=== PATIENT | male | born 1965 | race Two or more races ===

== ENCOUNTER → 2018-11-04 | Outpatient (CLI) | payer OTHER ==
[~2018-11-04] MED LIST: IOHEXOL 300 MG/ML 100ML BOTTLE IJ ONE
[2018-11-04 08:51] LABS: Anion Gap 5 (5-15); BUN/Creatinine Ratio 14.9; Blood Urea Nitrogen 14 mg/dL (7-18); Calcium 8.6 mg/dL (8.5-10.1); Carbon Dioxide 28 mmol/L (21-32); Chloride 106 mmol/L (98-107); GFR African American > 60 mL/min; GFR Non-African American > 60 mL/min; Glucose 136 mg/dL (74-106); Potassium 4.3 mmol/L (3.5-5.1); Sodium 139 mmol/L (136-145)
== END | disposition home or self-care (01) ==
LOC: CT 08:01
DX: H50.10 Unspecified exotropia (principal); H05.20 Unspecified exophthalmos
CPT/HCPCS: 36415; 70470; 80048; Q9967